=== PATIENT | male | born 1950 | race Caucasian/White ===

== ENCOUNTER 2018-09-22 13:30 | Inpatient (IN) | payer OTHER, MEDICARE ==
[~2018-09-22] VITALS: Ht 170.2 cm; Wt 68.0 kg
--- NOTE | 2018-09-22 14:12 | NUR ---
RECEIVED TO ROOM 2205 AMBULATORY FROM MD OFFICE. A/O X3. SKIN INTACT WITHOUT REDNESS EXCEPT TO ANAL AREA WHICH IS REDDENED AND FIRM ON LEFT SIDE. WILL MONITOR. IV SITED TO RIGHT FORARM AFTER ONE ATTEMP WITH 20 G. DENIES NEEDS.
[2018-09-22 14:14] VITALS: BP 133/76; BMI 23.5
[2018-09-22] MEDS ORDERED: FLOMAX0.4 MG PO (14:31)
[2018-09-22] MEDS ORDERED: OXYCONTIN10 MG PO (14:32)
[2018-09-22] MEDS ORDERED: VALIUM10 MG PO (14:33)
--- NOTE | 2018-09-22 14:37 | NUR ---
REQUESTED AND GIVEN 650 MG TYLENOL PO FOR C/O ANAL PAIN LEVEL 10. WILL MONITOR.
[2018-09-22 15:14] LABS: BASOPHILS 0.1 % (0-2); EOSINOPHILS 1.1 % (0-7); HEMATOCRIT 34.6 % (42.0-54.0); IMMATURE GRANULOCYTES 0.3 % (0-5); MCH 32.5 pg (26.0-34.0); MCHC 34.7 g/dL (31.0-37.0); MCV 93.8 fL (80.0-100.0); MEAN PLATELET VOLUME 9.6 fL (7.4-10.4); MONOCYTES 10.9 % (2-11); NEUTROPHILS 74.6 % (40-80); PLATELET COUNT 198 10x3/uL (130-400); RBC 3.69 10x6/uL (4.20-6.10); RDW 12.4 % (11.5-14.5); WBC 7.2 10x3/uL (4.8-10.8)
[2018-09-22 15:30] LABS: INR 1.03 (0.85-1.17)
[2018-09-22 15:34] LABS: ALBUMIN 3.5 g/dL (3.4-5.0); ALKALINE PHOSPHATASE 61 U/L (46-116); ALT (SGPT) 11 U/L (10-68); BILIRUBIN - TOTAL 0.36 mg/dL (0.2-1.3); CALC OSMOLALITY 263 mosm/kg (275-300); CALCIUM 8.2 mg/dL (8.5-10.1); CARBON DIOXIDE 25.9 mmol/L (21.0-32.0); CHLORIDE - SERUM 99 mmol/L (98-107); CREATININE - SERUM 0.9 mg/dL (0.6-1.3); GLUCOSE 86 mg/dL (74-106); PROTEIN - SERUM 6.7 g/dL (6.4-8.2); SODIUM 133 mmol/L (136-145); UREA NITROGEN 11 mg/dL (7-18); eGFR NON AFRICAN AMERICAN 89 mL/min (90-120)
[2018-09-22 15:45] VITALS: BP 138/94
--- NOTE | 2018-09-22 16:05 | NUR ---
OFF UNIT VIA BED FOR SURGERY.
[2018-09-22 16:17] LABS: % SATURATION 10 % (15-55); IRON 30 ug/dl (35-150); TOTAL IRON BIND CAPACITY 273 ug/dl (260-445); UNSAT IRON BIND CAPACITY 243 ug/dl (150-375)
[2018-09-22 18:02] VITALS: BP 123/59
--- NOTE | 2018-09-22 18:03 | NUR ---
RETURNED FROM SURGERY. A/O X3. IN ROOM.
[2018-09-22 18:33] VITALS: BP 137/66
--- NOTE | 2018-09-22 19:27 | NUR ---
SITTING UP IN BED EATING SUPPER. DENIES NEEDS. UP TO BR PER SELF. SOME BLOODY DRAINAGE NOTED FROM CANDACE RECTAL WOUND. WILL MONITOR. AT BEDSIDE.
--- NOTE | 2018-09-22 19:45 | NUR ---
PT SITTING UP IN BED, NO SIGNS OF DISTRESS. IV RIGHT FA INFUSING NS @ 100. PT UP AD SHANON TO BATHROOM. SMALL AMOUNT OF BLOODY DRAINAGE NOTED TO PERIRECTAL DRESSING. PT STATES NO NEEDS OR COMPLAINTS AT THIS TIME. CL IN REACH, WILL CONTINUE TO MONITOR
[2018-09-22 20:00] VITALS: BP 108/51
--- NOTE | 2018-09-22 20:14 | OP ---
PATIENT NAME: DAMIAN CAMPOS MEDICAL RECORD: [id number] :48 LOCATION:D.MS [id number] ADMISSION DATE:09/22/18 SURGEON: JENNIFER SANCHEZ MD DATE OF OPERATION: 09/22/2018 SURGEON: Jennifer Sanchez MD PREOPERATIVE DIAGNOSIS: Perirectal abscess. POSTOPERATIVE DIAGNOSIS: Perirectal abscess. PROCEDURES PERFORMED: 1. Rectal examination under anesthesia. 2. Incision and drainage of left-sided perirectal abscess 6 x 4 x 3 cm. ANESTHESIA: General. COMPLICATIONS: None. SPECIMENS: Fluid cultures for Gram stain culture and sensitivity. Case was grossly contaminated. ESTIMATED BLOOD LOSS: 20 cc. OPERATIVE COURSE: After consent was obtained, the patient was taken to the operating room and placed in the supine position on the operating table. Next, general anesthesia was given via endotracheal intubation after a timeout was taken to confirm the correct patient and procedure. The patient then placed in the lithotomy position. The perineum was prepped and draped in typical sterile fashion. Digital rectal exam was performed. The rectum was sterilely dilated using the Ewing-Hill retractors. There was no evidence of active fistula or drainage within the rectum and the anal canal. At this time, a skin incision was made over the area of greatest fluctuance. An elliptical skin incision was made, approximately 20-30 cc of purulent material were expressed. Cultures were obtained for Gram stain culture and sensitivity. The wound was then copiously irrigated with saline. It was then irrigated with peroxide and Betadine. Finger dissection was performed. The abscess cavity and all loculations were opened. The wound was then irrigated and packed with Betadine and Kerlix-soaked gauze. At the end of the case, all needle and instrument counts were correct. No complications occurred. The patient tolerated the procedure well. At the end of the case, all needle and instrument counts were correct. No complications occurred. The patient was extubated and transferred to the PACU in stable condition. TRANSINT:[id number] Voice Confirmation ID: [id number] DOCUMENT ID: [id number] JENNIFER SANCHEZ MD at 2014 CC: [id number] DICTATION DATE: 09/22/181716 COMPOUNDER STERILE PRODUCTS: 09/22/181957 ADM IN [place] [id number] [place] [address]
--- NOTE | 2018-09-23 01:27 | NUR ---
PT STATES PAIN 8/10 IN BACK, HIPS AND BUTTOCKS. GAVE DILAUDID ORDERED. WILL CONTINUE TO MONITOR
[2018-09-23 04:00] VITALS: BP 105/58
[2018-09-23 04:40] LABS: BASOPHILS 0.2 % (0-2); EOSINOPHILS 3.2 % (0-7); HEMATOCRIT 29.8 % (42.0-54.0); HEMOGLOBIN 10.1 g/dL (13.5-17.5); IMMATURE GRANULOCYTES 0.2 % (0-5); MCH 31.9 pg (26.0-34.0); MCHC 33.9 g/dL (31.0-37.0); MEAN PLATELET VOLUME 9.9 fL (7.4-10.4); MONOCYTES 10.1 % (2-11); NEUTROPHILS 73.3 % (40-80); PLATELET COUNT 181 10x3/uL (130-400); RBC 3.17 10x6/uL (4.20-6.10); RDW 12.4 % (11.5-14.5)
[2018-09-23 05:04] LABS: CALC OSMOLALITY 269 mosm/kg (275-300); CALCIUM 7.7 mg/dL (8.5-10.1); CARBON DIOXIDE 25.1 mmol/L (21.0-32.0); CHLORIDE - SERUM 101 mmol/L (98-107); GLUCOSE 101 mg/dL (74-106); POTASSIUM - SERUM 4.1 mmol/L (3.5-5.1); SODIUM 135 mmol/L (136-145); UREA NITROGEN 12 mg/dL (7-18); eGFR NON AFRICAN AMERICAN 79 mL/min (90-120)
--- NOTE | 2018-09-23 07:48 | NUR ---
AWAKE AND ALERT. ORIENTED X3. NO C/O AT THIS TIME. LUNGS ARE CLEAR BILATERALLY, NO COUGH NOTED. SKIN IS INTACT WITHOUT REDNESS EXCEPT WOUND TO ANAL AREA WHICH HAS A DRY INTACT DRESSING IN PLACE. IV TO RIGHT FOREARM IS PATENT WITHOUT REDNESS AT INSERTION SITE. DENIES NEEDS AT THIS TIME.
[2018-09-23 09:15] VITALS: BP 125/75
--- NOTE | 2018-09-23 10:00 | NUR ---
INCONTINENT OF URINE AND LOOSE WATERY STOOL. SKIN CARE PER STAFF. LINENS CHANGED.
[2018-09-23 10:10] VITALS: Ht 170.2 cm; Wt 68.0 kg
--- NOTE | 2018-09-23 11:06 | NUR ---
UP TO SHOWER WITH SET UP ASSISTANCE. PACKING REMOVED FROM CANDACE RECTAL WOUND. LINENS CHANGED PER STAFF. WOUND REPACKED WITH SALINE SOAKED KERLEX PER ORDERS. REQUESTED AND GIVEN 1MG DILAUDID SLOW IVP FOR C/O PAIN LEVEL 10 AFTER DRESSING COMPLETED. WILL MONITOR.
--- NOTE | 2018-09-23 12:03 | MORECARE ---
CASE MANAGEMENT DISCHARGE SUMMARY PATIENT: DAMIAN CAMPOS UNIT: [id number] ADM DATE: 09/22/18 AGE: 68 : 49 SEX: M ROOM/BED: D.2205 AUTHOR: CHELI,DOC PHYSICIAN: REFERRING PHYSICIAN: ADAMA EATON MD DATE OF SERVICE: 09/23/18 Discharge Plan Patient Name: DAMIAN CAMPOS Facility: [facility]:[place] : 1950 Planned Disposition: Home Health Service Anticipated Discharge Date: Discharge Date: Expected LOS: Initial Reviewer: [email or web address] Initial Review Date: 09/22/2018 Generated: 09/23/18 1:03 pm Comments DCP- Discharge Planning Updated by [email or web address]: Naya Kent on 09/23/18 11:[address] Patient Name: DAMIAN CAMPOS Admission Status: Urgent Accout number: [id number] Admission Date: 09-22-2018 : 1950 Admission Diagnosis: Attending: ADAMA EATON Current LOS: 1 Anticipated DC Date: Planned Disposition: Home Health Service Primary Insurance: [employer] PPO Discharge Planning Comments: CM met with patient to assess discharge planning needs. Patient stated that he lives independent with his care at home and plans to return there at discharge. His will be the one to drive him home. He has a cane, but does not use it. He states his home is safe to return. He will need home health at [place] for wound dressing changes. JOSE given to patient. 1) [facility] 2) [place]. Copy in chart and original given to patient .Called Adela at [facility] and they will run insurance to make sure they can accept him. CM will continue to follow and assist with DC planning Electrolytic Etcher: Naya Kent DCPIA - Discharge Planning Initial Assessment Updated by [email or web address]: Naya Kent on 09/23/18 11:56 am * Is the patient Alert and Oriented? Yes * How many steps to enter\exit or inside your home? * PCP ELAN GASCA * Pharmacy [facility] * Preadmission Environment Home with Family * ADLs Independent * Equipment Cane * Other Equipment CANE, DOES NOT USE * List name and contact numbers for known caregivers / representatives who currently or will assist patient after discharge: DENYS [phone] * Verbal permission to speak to the caregivers and representatives has been obtained from the patient. N/A * Community resources currently utilized None * Additional services required to return to the preadmission environment? Yes * Can the patient safely return to the preadmission environment? Yes * Has this patient been hospitalized within the prior 30 days at any hospital? No External Providers External Provider: [facility] Next Contact Date: Service Request Date: Service Type: Resolution: Reviewer: Comments: Patient Name: DAMIAN CAMPOS Page [phone] at 1203 All edits/amendments must be made on the electronic document DICTATION DATE: 09/23/181201 BI TESTER: CEDRIC 09/23/181201 RPT#: [id number] DC DATE: STATUS: ADM IN [facility] [address] [place] [address] END OF REPORT
--- NOTE | 2018-09-23 13:00 | NUR ---
ATE MOST OF LUNCH. DENIES NEEDS.
[2018-09-23 13:37] VITALS: BP 114/98
--- NOTE | 2018-09-23 14:40 | NUR ---
REQUESTED AND GIVEN 1MG DILAUDID SLOW IVP FOR C/O ANAL PAIN LEVEL 9. WILL MONITOR.
--- NOTE | 2018-09-23 19:00 | NUR ---
HAD ONE VERY HARD SMALL STOOL. DRESSING REDONE AFTER. REQUESTED AND GIVNE 1MG DILAUDID SLOW IVP FOR C/O LEFT BUTTOCK PAIN LEVEL 10. WILL MONITOR.
[2018-09-23 20:00] VITALS: BP 129/61
--- NOTE | 2018-09-23 20:30 | NUR ---
PT SITTING UP IN BED, NO SIGNS OF DISTRESS. ALERT AND ORIENTED. PT STATES PAIN /10. GAVE SCHEDULED OXY ORDERED. IV RIGHT FA INFUSING NS. PACKING AND DRESSING TO PERIRECTAL AREA. DRESSING CDI. PT STATES NO NEEDS AT THIS TIME. CL IN REACH, WILL CONTINUE TO MONITOR
[2018-09-24] VITALS: BP 140/64
--- NOTE | 2018-09-24 00:45 | NUR ---
PT STATES PAIN 8/10 IN BACK AND RECTUM. GAVE DILAUDID ORDERED. WILL CONTINUE TO MONITOR
[2018-09-24 04:00] VITALS: BP 111/54
[2018-09-24 04:59] LABS: BASOPHILS 0.3 % (0-2); EOSINOPHILS 4.7 % (0-7); HEMATOCRIT 27.8 % (42.0-54.0); HEMOGLOBIN 9.4 g/dL (13.5-17.5); IMMATURE GRANULOCYTES 0.3 % (0-5); LYMPHOCYTES 19.2 % (15-50); MCH 32.3 pg (26.0-34.0); MCHC 33.8 g/dL (31.0-37.0); MCV 95.5 fL (80.0-100.0); MEAN PLATELET VOLUME 9.9 fL (7.4-10.4); MONOCYTES 15.9 % (2-11); NEUTROPHILS 59.6 % (40-80); PLATELET COUNT 173 10x3/uL (130-400); RBC 2.91 10x6/uL (4.20-6.10); RDW 12.5 % (11.5-14.5)
[2018-09-24 05:12] LABS: WBC 3.6 10x3/uL (4.8-10.8)
[2018-09-24 05:13] LABS: CALC OSMOLALITY 274 mosm/kg (275-300); CALCIUM 8.2 mg/dL (8.5-10.1); CARBON DIOXIDE 29.2 mmol/L (21.0-32.0); CHLORIDE - SERUM 101 mmol/L (98-107); CREATININE - SERUM 0.8 mg/dL (0.6-1.3); GLUCOSE 124 mg/dL (74-106); POTASSIUM - SERUM 3.8 mmol/L (3.5-5.1); SODIUM 138 mmol/L (136-145); eGFR NON AFRICAN AMERICAN > 90 mL/min (90-120)
[2018-09-24 05:26] LABS: UREA NITROGEN 8 mg/dL (7-18)
--- NOTE | 2018-09-24 08:01 | NUR ---
PT RESTING IN BED. NO SIGNS OF DISTRESS. IV TO RIGHT FORARM PATENT NO REDNESS OR TENDERNESS. DRESSING INTACT. DENIES ANY NEED AT THIS TIME. CALL LIGHT IN REACH. BED LOW POSITION. NO FAMILY AT BEDSIDE AT THIS TIME.
[2018-09-24] MEDS ORDERED: MIRALAX17 GM PO (09:07)
[2018-09-24] MEDS ORDERED: SULFAMETHOXAZOL1 TA3 PO (09:07)
[2018-09-24 09:20] LABS: FOLATE (FOLIC ACID) - SERUM >20.0 ng/mL (>3.0)
--- NOTE | 2018-09-24 09:49 | MORECARE ---
CASE MANAGEMENT DISCHARGE SUMMARY PATIENT: DAMIAN CAMPOS UNIT: [id number] ADM DATE: 09/23/18 AGE: 68 : 49 SEX: M ROOM/BED: D.2205 AUTHOR: SUKHDEV BOWER PHYSICIAN: REFERRING PHYSICIAN: ADAMA EATON MD DATE OF SERVICE: 09/24/18 Discharge Plan Patient Name: DAMIAN CAMPOS Facility: [facility]:[place] : 1950 Planned Disposition: Home Health Service Anticipated Discharge Date: Discharge Date: Expected LOS: Initial Reviewer: [email or web address] Initial Review Date: 09/22/2018 Generated: 09/24/18 10:49 am Comments DCP- Discharge Planning Updated by [email or web address]: Naya Kent on 09/24/18 8:[address] PATIENT WILL BE DISCHARGING HOME TODAY WITH HOME HEALTH AND HOUSE CALLS. DC INFORMATION SENT TO [facility] AND THEY WILL ACCEPT HIM. CM WILL CONTINUE TO FOLLOW AND ASSIST WITH DC PLANNIGN NEEDED DCP- Discharge Planning Updated by [email or web address]: Naya Kent on 09/23/18 11:[address] Patient Name: DAMIAN CAMPOS Admission Status: Urgent Accout number: [id number] Admission Date: 09-22-2018 : 1950 Admission Diagnosis: Attending: ADAMA EATON Current LOS: 1 Anticipated DC Date: Planned Disposition: Home Health Service Primary Insurance: [employer] PPO Discharge Planning Comments: CM met with patient to assess discharge planning needs. Patient stated that he lives independent with his care at home and plans to return there at discharge. His will be the one to drive him home. He has a cane, but does not use it. He states his home is safe to return. He will need home health at [place] for wound dressing changes. JOSE given to patient. 1) [facility] 2) [place]. Copy in chart and original given to patient .Called Adela at [facility] and they will run insurance to make sure they can accept him. CM will continue to follow and assist with DC planning Offshore Wind Operations Manager: Naya Kent DCPIA - Discharge Planning Initial Assessment Updated by [email or web address]: Naya Kent on 09/23/18 11:56 am * Is the patient Alert and Oriented? Yes * How many steps to enter\exit or inside your home? * PCP ELAN GASCA * Pharmacy [facility] * Preadmission Environment Home with Family * ADLs Independent * Equipment Cane * Other Equipment CANE, DOES NOT USE * List name and contact numbers for known caregivers / representatives who currently or will assist patient after discharge: DENYS [phone] * Verbal permission to speak to the caregivers and representatives has been obtained from the patient. N/A * Community resources currently utilized None * Additional services required to return to the preadmission environment? Yes * Can the patient safely return to the preadmission environment? Yes * Has this patient been hospitalized within the prior 30 days at any hospital? No Last DP export: 09/23/18 11:03 a Patient Name: DAMIAN CAMPOS Page [phone] at 0949 All edits/amendments must be made on the electronic document DICTATION DATE: 09/24/18948 FASHION JOURNALIST: CEDRIC 09/24/18948 RPT#: [id number] DC DATE: STATUS: ADM IN [facility] [address] [place] [address] END OF REPORT
[2018-09-24 10:25] VITALS: BP 139/54
--- NOTE | 2018-09-24 12:24 | NUR ---
DISCHARGE INSTRUCTIONS GIVEN. SEEMS TO UNDERSTAND INSTRUCIONS. IV OUT TIP INTACT. NO SIGNS OF DISTRESS. LEFT WITH HOSPTIAL STAFF TO PERSONAL RIDE TO GO HOME WITH . DENIES ANY NEED BEDFORE LEAVING.
--- NOTE | 2018-09-26 14:35 | MORECARE ---
CASE MANAGEMENT DISCHARGE SUMMARY PATIENT: DAMIAN CAMPOS UNIT: [id number] ADM DATE: 09/23/18 AGE: 68 : 49 SEX: M ROOM/BED: D.2205 AUTHOR: CHELIDOC PHYSICIAN: REFERRING PHYSICIAN: ADAMA EATON MD DATE OF SERVICE: 09/26/18 Discharge Plan Patient Name: DAMIAN CAMPOS Facility: [facility]:[place] : 1950 Planned Disposition: Home Health Service Anticipated Discharge Date: Discharge Date: 09/24/2018 Expected LOS: 0 Initial Reviewer: [email or web address] Initial Review Date: 09/22/2018 Generated: 09/26/18 3:35 pm Comments DCP- Discharge Planning Updated by [email or web address]: Naya Kent on 09/24/18 8:[address] PATIENT WILL BE DISCHARGING HOME TODAY WITH HOME HEALTH AND HOUSE CALLS. DC INFORMATION SENT TO [facility] AND THEY WILL ACCEPT HIM. CM WILL CONTINUE TO FOLLOW AND ASSIST WITH DC PLANNIGN NEEDED DCP- Discharge Planning Updated by [email or web address]: Naya Kent on 09/23/18 11:[address] Patient Name: DAMIAN CAMPOS Admission Status: Urgent Accout number: [id number] Admission Date: 09-22-2018 : 1950 Admission Diagnosis: Attending: ADAMA EATON Current LOS: 1 Anticipated DC Date: Planned Disposition: Home Health Service Primary Insurance: AET[employer] PPO Discharge Planning Comments: CM met with patient to assess discharge planning needs. Patient stated that he lives independent with his care at home and plans to return there at discharge. His will be the one to drive him home. He has a cane, but does not use it. He states his home is safe to return. He will need home health at [place] for wound dressing changes. JOSE given to patient. 1) [facility] 2) [place]. Copy in chart and original given to patient .Called Adela at [facility] and they will run insurance to make sure they can accept him. CM will continue to follow and assist with DC planning Industrial Aerial Installer: Naya Kent DCPIA - Discharge Planning Initial Assessment Updated by [email or web address]: Naya Kent on 09/23/18 11:56 am * Is the patient Alert and Oriented? Yes * How many steps to enter\exit or inside your home? * PCP ELAN GASCA * Pharmacy [facility] * Preadmission Environment Home with Family * ADLs Independent * Equipment Cane * Other Equipment CANE, DOES NOT USE * List name and contact numbers for known caregivers / representatives who currently or will assist patient after discharge: DENYS [phone] * Verbal permission to speak to the caregivers and representatives has been obtained from the patient. N/A * Community resources currently utilized None * Additional services required to return to the preadmission environment? Yes * Can the patient safely return to the preadmission environment? Yes * Has this patient been hospitalized within the prior 30 days at any hospital? No Last DP export: 09/24/18 8:49 a Patient Name: DAMIAN CAMPOS Page [phone] at 1435 All edits/amendments must be made on the electronic document DICTATION DATE: 09/26/181433 CLERICAL SUPERVISOR: CEDRIC 09/26/181433 RPT#: [id number] DC DATE:09/24/18 STATUS: DIS IN [facility] [address] [place] [address] END OF REPORT
[2018-09-29 18:08] LABS: AEROBE ID Final report (())
[2018-10-06 18:08] LABS: AEROBE ID Final report (()); RESULT 1 Actinomyces species (())
== END 2018-09-24 12:25 | disposition home health service (06) | DRG 345 ==
LOC: D.MS 13:30 → OBSVTIME 13:30 → D.MS 13:30
PROVIDERS: Internal Medicine Nephrology; Surgery; ADMIT Family Medicine
PROC: 0D9P0ZZ Drainage of Rectum, Open Approach (ICD-10-PCS; principal; 2018-09-22 17:00)
DX: K61.1 Rectal abscess (principal); E87.1 Hypo-osmolality and hyponatremia; D50.8 Other iron deficiency anemias; F41.9 Anxiety disorder, unspecified

== ENCOUNTER 2019-04-27 18:02 | Emergency (ER) | payer OTHER, MEDICARE ==
[~2019-04-27] VITALS: Ht 170.2 cm; Wt 65.0 kg
[~2019-04-27 18:02] MED LIST: FLOMAX0.4 MG PO; MIRALAX17 GM PO; OXYCONTIN10 MG PO; SULFAMETHOXAZOL1 TA3 PO; VALIUM10 MG PO
[2019-04-27 18:07] VITALS: Ht 170.2 cm; Wt 65.0 kg
[2019-04-27] MEDS ORDERED: MARINOL5 MG PO (18:08)
[2019-04-27] MEDS ORDERED: TESTOSTERONE (18:09)
[2019-04-27] MEDS ORDERED: [UNRECOGNIZED DRUG - OTHER] (18:11)
[2019-04-27 20:07] LABS: BASOPHILS 0 % (0-2); EOSINOPHILS 0.5 % (0-7); HEMATOCRIT 35.8 % (42.0-54.0); HEMOGLOBIN 12.7 g/dL (13.5-17.5); IMMATURE GRANULOCYTES 0.3 % (0-5); LYMPHOCYTES 16.3 % (15-50); MCH 32.2 pg (26.0-34.0); MCHC 35.5 g/dL (31.0-37.0); MCV 90.6 fL (80.0-100.0); MEAN PLATELET VOLUME 9.6 fL (7.4-10.4); MONOCYTES 7.3 % (2-11); NEUTROPHILS 75.6 % (40-80); RBC 3.95 10x6/uL (4.20-6.10); RDW 13.3 % (11.5-14.5); WBC 5.8 10x3/uL (4.8-10.8)
[2019-04-27 20:09] LABS: PLATELET COUNT 243 10x3/uL (130-400)
[2019-04-27 20:21] LABS: ALBUMIN 3.9 g/dL (3.4-5.0); ALKALINE PHOSPHATASE 82 U/L (46-116); ALT (SGPT) 12 U/L (10-68); BILIRUBIN - TOTAL 0.39 mg/dL (0.2-1.3); CALC OSMOLALITY 266 mosm/kg (275-300); CALCIUM 8.4 mg/dL (8.5-10.1); CHLORIDE - SERUM 98 mmol/L (98-107); CREATININE - SERUM 0.7 mg/dL (0.6-1.3); GLUCOSE 107 mg/dL (74-106); POTASSIUM - SERUM 4.8 mmol/L (3.5-5.1); PROTEIN - SERUM 7.3 g/dL (6.4-8.2); SODIUM 134 mmol/L (136-145); UREA NITROGEN 10 mg/dL (7-18); eGFR NON AFRICAN AMERICAN > 90 mL/min (90-120)
[2019-04-27 20:33] LABS: CKMB 0.9 U/L (0.0-3.6); CREATINE KINASE 64 UL (21-232); MAGNESIUM - SERUM 1.9 mg/dL (1.8-2.4); THYROID STIMULATING HORMONE 5.16 uIU/mL (0.36-3.74)
[2019-04-27 20:40] LABS: TROPONIN-I < 0.017 ng/mL (0.000-0.060)
[2019-04-27 21:05] LABS: APPEARANCE CLEAR (CLEAR); BILIRUBIN NEGATIVE (NEGATIVE); COLOR YELLOW (YELLOW); GLUCOSE NEGATIVE (NEGATIVE); KETONE NEGATIVE (NEGATIVE); NITRITE NEGATIVE (NEGATIVE); PROTEIN NEGATIVE (NEGATIVE); UROBILINOGEN NORMAL (NORMAL)
[2019-04-27 21:41] LABS: UDS - AMPHET NEGATIVE QUAL (NEGATIVE); UDS - BARB NEGATIVE QUAL (NEGATIVE); UDS - BENZO POSITIVE QUAL (NEGATIVE); UDS - COCAINE NEGATIVE QUAL (NEGATIVE); UDS - OPIATE POSITIVE QUAL (NEGATIVE); UDS - PCP NEGATIVE QUAL (NEGATIVE); UDS - THC POSITIVE QUAL (NEGATIVE)
[2019-04-27 23:24] VITALS: BP 136/63
== END 2019-04-27 23:24 ==
LOC: D.ER 18:02
PROVIDERS: Family Medicine
DX: G40.909 Epilepsy, unspecified, not intractable, without status epilepticus (principal); R55 Syncope and collapse; F17.200 Nicotine dependence, unspecified, uncomplicated